=== PATIENT | female | born 1955 | race Caucasian/White ===

== ENCOUNTER 2019-02-01 19:21 | Inpatient (IN) | payer BC ==
[2019-02-01] MEDS: morphine 4 MG/ML VIAL IV (21:00)
[2019-02-01] MEDS: ONDANSETRON 4 MG INJ IV (21:00)
[2019-02-01 21:11] LABS: ADD MAN DIFF? NO
[2019-02-01 21:15] LABS: WHITE BLOOD COUNT 8.5 10^3/ul (4.8-10.8)
[2019-02-01 21:15] LABS: BASOPHILS % 0.5 % (0.0-2.0); EOSINOPHILS % 0.1 % (0.0-7.0); HEMATOCRIT 42.9 % (37.0-47.0); HEMOGLOBIN 14.7 g/dl (12.0-16.0); LYMPHOCYTES # 1.6 10^3/ul (0.8-2.9); LYMPHOCYTES % 19.2 % (15.0-51.0); MEAN CORPUSCULAR HEMOGLOBIN 31.9 pg (29.0-33.0); MEAN CORPUSCULAR HGB CONC 34.3 g/dl (32.0-37.0); MEAN CORPUSCULAR VOLUME 93.1 fl (82.0-101.0); MEAN PLATELET VOLUME 11.1 fl (7.4-10.4); MONOCYTE # 0.5 10^3/ul (0.3-0.9); MONOCYTES % 6.1 % (0.0-11.0); NEUTROPHIL # 6.3 10^3/ul (1.6-7.5); NEUTROPHILS % 73.7 % (39.0-77.0); PLATELET COUNT 309 10^3/UL (140-415); RED BLOOD COUNT 4.61 10^6/ul (4.20-5.40); RED CELL DISTRIBUTION WIDTH 12.3 % (11.5-14.5)
[2019-02-01 21:34] LABS: ALANINE AMINOTRANSFERASE 171 IU/L (13-69); ALBUMIN 4.4 g/dl (3.3-4.9); ALBUMIN/GLOBULIN RATIO 1.37; ALKALINE PHOSPHATASE 109 IU/L (42-121); ANION GAP 10 (5-13); ASPARTATE AMINO TRANSFERASE 246 IU/L (15-46); BILIRUBIN,INDIRECT 0.5 mg/dl (0-1.1); BILIRUBIN,TOTAL 0.5 mg/dl (0.2-1.3); BLOOD UREA NITROGEN 17 mg/dl (7-20); CALCIUM 9.6 mg/dl (8.4-10.2); CARBON DIOXIDE 24 mmol/L (21-31); CHLORIDE 105 mmol/L (97-110); CREATININE 0.59 mg/dl (0.44-1.00); Estimated GFR > 60 mL/min (>60); GLUCOSE 115 mg/dl (70-220); POTASSIUM 4.4 mmol/L (3.5-5.1); SODIUM 139 mmol/L (135-144); TOTAL PROTEIN 7.6 g/dl (6.1-8.1)
[2019-02-01 21:36] LABS: ADD UMIC YES; UR AMORPHOUS CRYSTAL MANY /HPF (NONE SEEN); UR ASCORBIC ACID 40 mg/dL (NEGATIVE); UR BILIRUBIN (Dip) NEGATIVE (NEGATIVE); UR BLOOD (Dip) NEGATIVE (NEGATIVE); UR CLARITY CLOUDY (CLEAR); UR COLOR AMBER (YELLOW); UR GLUCOSE (Dip) NEGATIVE (NEGATIVE); UR KETONES (Dip) NEGATIVE (NEGATIVE); UR LEUKOCYTE ESTERASE (Dip) NEGATIVE Leu/ul (NEGATIVE); UR MUCUS FEW /HPF (NONE SEEN); UR NITRITE (Dip) NEGATIVE (NEGATIVE); UR RBC 1 /HPF (0-5); UR SQUAMOUS EPITHELIAL CELL FEW /HPF (FEW); UR TOTAL PROTEIN (Dip) NEGATIVE (NEGATIVE); UR UROBILINOGEN (Dip) 2+ mg/dL (NEGATIVE); UR WBC 1 /HPF (0-5)
[2019-02-01 21:56] LABS: LIPASE 34751 U/L (23-300)
[2019-02-01] MEDS: DIPHENHYDRAMINE 50 MG INJ IV (21:56)
[2019-02-01] MEDS ORDERED: ONDANSETRON 4 MG INJ IV (23:00)
[2019-02-02] MEDS ORDERED: NACL 0.9% 3 ML SYG IV (01:00)
[2019-02-02] MEDS: DEXTROSE 5%-0.45% NACL 1,000 ML IV ×3 (01:01→17:19)
[2019-02-02] MEDS: HYDROmorphONE 1 MG/ML SYG IV (01:02)
[2019-02-02] MEDS: PIPER-TAZO 3.375 GM IV (PMX) 100 ML IVPB ×2 (07:10→12:13)
[2019-02-02] MEDS: FAMOTIDINE 20 MG INJ IV ×2 (07:10→22:58)
[2019-02-02] MEDS: ACETAMINOPHEN 325 MG TAB PO (10:47)
[2019-02-02] MEDS: morphine 2 MG INJ IV ×2 (17:30→22:58)
[2019-02-03] MEDS: morphine 2 MG INJ IV (03:05)
[2019-02-03] MEDS: DEXTROSE 5%-0.45% NACL 1,000 ML IV ×2 (04:00→15:39)
[2019-02-03 05:07] LABS: ADD MAN DIFF? NO
[2019-02-03 05:08] LABS: BASOPHIL # 0.1 10^3/ul (0.0-0.1); BASOPHILS % 0.8 % (0.0-2.0); EOSINOPHILS # 0.1 10^3/ul (0.0-0.5); EOSINOPHILS % 1.4 % (0.0-7.0); HEMATOCRIT 37.8 % (37.0-47.0); HEMOGLOBIN 12.7 g/dl (12.0-16.0); LYMPHOCYTES # 2.3 10^3/ul (0.8-2.9); LYMPHOCYTES % 35.9 % (15.0-51.0); MEAN CORPUSCULAR HEMOGLOBIN 31.9 pg (29.0-33.0); MEAN CORPUSCULAR HGB CONC 33.6 g/dl (32.0-37.0); MEAN PLATELET VOLUME 11.2 fl (7.4-10.4); MONOCYTE # 0.6 10^3/ul (0.3-0.9); MONOCYTES % 8.7 % (0.0-11.0); NEUTROPHIL # 3.4 10^3/ul (1.6-7.5); PLATELET COUNT 245 10^3/UL (140-415); RED BLOOD COUNT 3.98 10^6/ul (4.20-5.40); RED CELL DISTRIBUTION WIDTH 12.2 % (11.5-14.5)
[2019-02-03 05:08] LABS: WHITE BLOOD COUNT 6.5 10^3/ul (4.8-10.8)
[2019-02-03 05:28] LABS: ALANINE AMINOTRANSFERASE 77 IU/L (13-69); ALBUMIN 3.7 g/dl (3.3-4.9); ALBUMIN/GLOBULIN RATIO 1.37; ALKALINE PHOSPHATASE 68 IU/L (42-121); ANION GAP 8 (5-13); ASPARTATE AMINO TRANSFERASE 42 IU/L (15-46); BILIRUBIN,INDIRECT 0.4 mg/dl (0-1.1); BILIRUBIN,TOTAL 0.4 mg/dl (0.2-1.3); BLOOD UREA NITROGEN 9 mg/dl (7-20); CALCIUM 8.6 mg/dl (8.4-10.2); CARBON DIOXIDE 28 mmol/L (21-31); CHLORIDE 104 mmol/L (97-110); CHOL/HDL RATIO 2.2 RATIO; CHOLESTEROL 159 mg/dl (100-200); CREATININE 0.63 mg/dl (0.44-1.00); Estimated GFR > 60 mL/min (>60); GLUCOSE 108 mg/dl (70-220); HDL CHOLESTEROL 71 mg/dl (35-98); LDL CHOLESTEROL,CALCULATED 65 mg/dl; MAGNESIUM 2.2 mg/dl (1.7-2.5); PHOSPHORUS 3.3 mg/dl (2.5-4.9); POTASSIUM 4.2 mmol/L (3.5-5.1); SODIUM 140 mmol/L (135-144); TOTAL PROTEIN 6.4 g/dl (6.1-8.1); TRIGLYCERIDES 116 mg/dl (0-149)
[2019-02-03 05:32] LABS: LIPASE 659 U/L (23-300)
[2019-02-03] MEDS: morphine 4 MG/ML VIAL IV ×2 (08:50→13:10)
[2019-02-03] MEDS: ONDANSETRON 4 MG INJ IV ×2 (08:50→14:59)
[2019-02-03] MEDS: FAMOTIDINE 20 MG INJ IV ×2 (08:56→21:13)
[2019-02-03] MEDS: IBUPROFEN 600 MG TAB PO (21:20)
[2019-02-03] MEDS: ACETAMINOPHEN 325 MG TAB PO (22:52)
[2019-02-04] MEDS: DEXTROSE 5%-0.45% NACL 1,000 ML IV (05:29)
[2019-02-04 06:51] LABS: ALANINE AMINOTRANSFERASE 59 IU/L (13-69); ALBUMIN 3.3 g/dl (3.3-4.9); ALBUMIN/GLOBULIN RATIO 1.22; ALKALINE PHOSPHATASE 64 IU/L (42-121); ANION GAP 5 (5-13); ASPARTATE AMINO TRANSFERASE 26 IU/L (15-46); BILIRUBIN,INDIRECT 0.5 mg/dl (0-1.1); BILIRUBIN,TOTAL 0.5 mg/dl (0.2-1.3); BLOOD UREA NITROGEN 7 mg/dl (7-20); CALCIUM 8.7 mg/dl (8.4-10.2); CARBON DIOXIDE 26 mmol/L (21-31); CHLORIDE 107 mmol/L (97-110); CREATININE 0.52 mg/dl (0.44-1.00); Estimated GFR > 60 mL/min (>60); GLUCOSE 108 mg/dl (70-220); LIPASE 311 U/L (23-300); POTASSIUM 3.5 mmol/L (3.5-5.1); SODIUM 138 mmol/L (135-144)
[2019-02-04] MEDS: FAMOTIDINE 20 MG INJ IV (09:11)
[2019-02-04] MEDS: ACETAMINOPHEN 325 MG TAB PO (09:20)
== END 2019-02-04 12:00 | disposition home or self-care (01) | DRG 440 ==
LOC: MS3 22:49 → E/R 19:21 → 2NE 02-02 16:50
DX: K85.10 Biliary acute pancreatitis without necrosis or infection (principal); K80.70 Calculus of gallbladder and bile duct without cholecystitis without obstruction
CPT/HCPCS: 36415; 74181; 76705; 80053; 80061; 81001; 83036; 83690; 83735; 84100; 85025; 96374; 96375; 99285-25